=== PATIENT | male | born 1945 | race Caucasian/White ===

== ENCOUNTER → 2017-12-01 09:38 | Outpatient (CLI) | payer MEDICARE, OTHER, SELFPAY ==
--- NOTE | 2017-12-01 09:43 | RAD_ITS ---
STUDY: X-RAY - LEFT KNEE REASON FOR EXAM: Pain. TECHNIQUE: 4 view(s) of the knee. COMPARISON: None. FINDINGS: Normal visualized distal femur. There is an osteochondroma of the posterior medial aspect of the proximal tibial diametaphysis. Normal proximal tibiofibular articulation. There are marginal osteophytes and moderately severe joint space narrowing of the medial femorotibial compartment. Normal lateral femorotibial compartment. There are small marginal osteophytes and mild joint space narrowing of the patellofemoral articulation. There is chondrocalcinosis. 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 Chondrocalcinosis. Electronically Signed: Jonah Werner MD at 10:01 EDT Tel , Service support ,
== END ==
PROVIDERS: Visit Provider Orthopaedic Surgery
DX: M25.562 Pain in left knee (principal)
CPT/HCPCS: 73564